=== PATIENT | female | born 1960 | race Caucasian/White ===

== ENCOUNTER 2024-03-26 12:42 | Emergency (ER) | payer OTHER, SELFPAY ==
[2024-03-26] MEDS ORDERED: Acetaminophen 500 MG TAB ONE (13:23)
[2024-03-26] MEDS ORDERED: Ibuprofen 200 MG TAB ONE (13:24)
[2024-03-26] MEDS ORDERED: Cyclobenzaprine 10 MG TAB ONE (13:24)
== END 2024-03-26 15:11 | disposition home or self-care (01) ==
LOC: ERS 12:42
DX: M54.6 Pain in thoracic spine (principal)
CPT/HCPCS: 99283